=== PATIENT | male | born 1985 | race Hispanic/Latino ===

== ENCOUNTER 2019-09-15 13:42 | Emergency (ER) | payer SELFPAY ==
[~2019-09-15] VITALS: Ht 185.4 cm; Wt 56.2 kg
[2019-09-15] MEDS ORDERED: KETOROLAC TROMETHAMINE 10 MG TAB PO ONE (15:30)
[2019-09-15] MEDS ORDERED: CYCLOBENZAPRINE 5MG TABLET PO ONE (15:30)
[2019-09-15] MEDS ORDERED: NAPR-837 PO (15:30)
[2019-09-15] MEDS ORDERED: CYCL5TAB PO (15:30)
[2019-09-15 15:38] VITALS: BP 154/92
== END 2019-09-15 15:49 | disposition home or self-care (01) ==
LOC: M ED 13:42
DX: S39.012A Strain of muscle, fascia and tendon of lower back, initial encounter (principal); X58.XXXA Exposure to other specified factors, initial encounter; Y92.9 Unspecified place or not applicable; Y93.9 Activity, unspecified; Y99.9 Unspecified external cause status

== ENCOUNTER 2019-09-25 11:09 | Emergency (ER) | payer SELFPAY ==
[~2019-09-25 11:09] MED LIST: CYCL5TAB PO; NAPR-837 PO
[2019-09-25 12:11] LABS: BASO % 0.7 % (0.0-1.0); EOS % 0.5 % (0.0-3.0); HEMOGLOBIN 14.7 g/dl (13.5-17.5); LYMPH # 1.2 10^3/uL (1.5-5.0); LYMPH % 27.6 % (24.0-44.0); MEAN CORPUSCULAR HEMOGLOBIN 29.7 pg (27.0-33.0); MEAN CORPUSCULAR HGB CONC 34.2 g/dl (32.0-36.5); MEAN CORPUSCULAR VOLUME 86.9 fl (80.0-96.0); MONO # 0.2 10^3/uL (0.0-0.8); MONO % 4.5 % (0.0-5.0); NEUTROPHILS # 2.8 10^3/uL (1.5-8.5); NEUTROPHILS % 66.5 % (36.0-66.0); PLATELET COUNT, AUTOMATED 199 10^3/uL (150-450); RED BLOOD COUNT 4.95 10^6/uL (4.30-6.10); WHITE BLOOD COUNT 4.2 10^3/uL (4.0-10.0)
[2019-09-25 12:32] LABS: ALBUMIN 4.2 GM/DL (3.2-5.2); ALT/SGPT 26 U/L (12-78); AMYLASE 99 U/L (25-115); BILIRUBIN,DIRECT 0.1 MG/DL (0.0-0.2); BILIRUBIN,TOTAL 0.5 MG/DL (0.2-1.0); BLOOD UREA NITROGEN 10 MG/DL (7-18); CALCIUM LEVEL 8.8 MG/DL (8.5-10.1); CARBON DIOXIDE LEVEL 28 MEQ/L (21-32); CHLORIDE LEVEL 107 MEQ/L (98-107); CREATININE FOR GFR 0.82 MG/DL (0.70-1.30); GLOMERULAR FILTRATION RATE > 60.0 (>60); GLUCOSE, FASTING 107 MG/DL (70-100); LIPASE 80 U/L (73-393); POTASSIUM SERUM 3.4 MEQ/L (3.5-5.1); SODIUM LEVEL 142 MEQ/L (136-145)
--- NOTE | 2019-09-25 12:56 | REP ---
KUB ABDOMEN AND PELVIS: KUB film of abdomen and pelvis performed. Bowel gas pattern is normal. No abnormal calcifications are seen. Visualized osseous structures are unremarkable. IMPRESSION: Negative exam. Electronically Signed by Luis Eduardo Sutton MD 09/25/2019 03:19 P
--- NOTE | 2019-09-25 13:19 | REP ---
RIGHT UPPER QUADRANT ULTRASOUND: Real-time sonographic evaluation of the right upper quadrant performed. No gallstones are seen. There appear to be several tiny polyps along the inner wall of the gallbladder. There is no gallbladder wall thickening or pericholecystic fluid. There is no intrahepatic or extrahepatic biliary dilatation, common bile duct measuring 4 mm. Liver and pancreas demonstrate homogeneous echotexture with no gross mass. Right kidney demonstrates no hydronephrosis with normal size 10.5 cm in length. IMPRESSION: Several tiny polyps in the gallbladder without evidence of gallstones, gallbladder wall thickening, pericholecystic fluid or biliary dilatation. Electronically Signed by Luis Eduardo Sutton MD 09/25/2019 03:19 P
[2019-09-25 13:38] VITALS: BP 123/82
[2019-09-25] MEDS ORDERED: SIME180C PO (13:59)
== END 2019-09-25 14:05 | disposition home or self-care (01) ==
LOC: M ED 11:09
DX: K82.4 Cholesterolosis of gallbladder (principal)

== ENCOUNTER → 2020-02-23 | Outpatient (REF) | payer SELFPAY ==
[~2020-02-23] MED LIST changes: +SIME180C PO
[2020-02-23 17:56] LABS: ALBUMIN 4.2 GM/DL (3.2-5.2); ALT/SGPT 39 U/L (12-78); BILIRUBIN,TOTAL 0.4 MG/DL (0.2-1.0); BLOOD UREA NITROGEN 18 MG/DL (7-18); CALCIUM LEVEL 9.2 MG/DL (8.5-10.1); CARBON DIOXIDE LEVEL 30 MEQ/L (21-32); CHLORIDE LEVEL 108 MEQ/L (98-107); GLOMERULAR FILTRATION RATE > 60.0 (>60); GLUCOSE, FASTING 86 MG/DL (70-100); POTASSIUM SERUM 3.9 MEQ/L (3.5-5.1); SODIUM LEVEL 142 MEQ/L (136-145); TOTAL PROTEIN 7.9 GM/DL (6.4-8.2)
[2020-02-23 18:19] LABS: BASO % 0.7 % (0.0-1.0); EOS # 0.1 10^3/uL (0.0-0.5); EOS % 1.8 % (0.0-3.0); HEMATOCRIT 47.7 % (42.0-52.0); HEMOGLOBIN 15.8 g/dl (13.5-17.5); LYMPH # 1.8 10^3/uL (1.5-5.0); MEAN CORPUSCULAR HEMOGLOBIN 29.5 pg (27.0-33.0); MEAN CORPUSCULAR HGB CONC 33.1 g/dl (32.0-36.5); MEAN CORPUSCULAR VOLUME 89.2 fl (80.0-96.0); MONO # 0.4 10^3/uL (0.0-0.8); MONO % 6.7 % (0.0-5.0); NEUTROPHILS # 3.3 10^3/uL (1.5-8.5); NEUTROPHILS % 58.6 % (36.0-66.0); PLATELET COUNT, AUTOMATED 213 10^3/uL (150-450); RED BLOOD COUNT 5.35 10^6/uL (4.30-6.10); WHITE BLOOD COUNT 5.7 10^3/uL (4.0-10.0)
[2020-02-24 08:09] LABS: H PYLORI QUALITATIVE IgG DETECTED (NEGATIVE)
== END ==
LOC: M LABDRWAD 17:27
PROVIDERS: ATTEND Physician Assistant
DX: K21.9 Gastro-esophageal reflux disease without esophagitis (principal); R10.13 Epigastric pain

== ENCOUNTER 2020-10-11 10:49 | Emergency (ER) | payer SELFPAY ==
[~2020-10-11] VITALS: Ht 157.5 cm; Wt 59.8 kg
[~2020-10-11 10:49] MED LIST changes: -SIME180C PO; +SIME180C25 PO
[2020-10-11 10:50] VITALS: BP 149/91
--- NOTE | 2020-10-11 14:34 | REP ---
INDICATION: left sided chest pain, cough. COMPARISON: None. TECHNIQUE: PA and lateral views FINDINGS: The superior mediastinal structures are midline. The cardiac silhouette is unremarkable in size, shape, and position. The diaphragmatic surfaces of the lungs are regular, and the costophrenic angles are clear. The pulmonary millan are clear. The imaged osseous structures are intact. IMPRESSION: There is no acute cardiopulmonary disease. <Electronically signed by Son Lemus > 10/11/20 [id number]
[2020-10-11] MEDS ORDERED: BENZ200C70 PO (14:51)
[2020-10-11] MEDS ORDERED: MUCI600T31 PO (14:51)
== END 2020-10-11 15:06 | disposition home or self-care (01) ==
LOC: M ED 10:49
DX: R05 Cough (principal); R07.89 Other chest pain; Z79.899 Other long term (current) drug therapy